=== PATIENT | female | born 1995 | race African-American/Black ===

== ENCOUNTER 2023-12-06 17:31 | Emergency (ER) | payer OTHER ==
[~2023-12-06] VITALS: Ht 172.7 cm; Wt 104.5 kg
[2023-12-06] MEDS ORDERED: ALBUTEROL (17:37)
[2023-12-06 17:38] VITALS: O2SAT 98
[2023-12-06] MEDS: ACETAMINOPHEN 325MG TABLET PO ONE (19:49)
[2023-12-06] MEDS: METOCLOPRAMIDE HCL 10MG TABLET PO ONE (19:49)
[2023-12-06] MEDS ORDERED: ACET-2708 MT (19:57)
[2023-12-06 20:10] VITALS: BP 110/68; PULSE 71; RESP 17; TEMP 36.61404; O2SAT 100
== END 2023-12-06 23:57 | disposition home or self-care (01) ==
LOC: ER 17:44
DX: S00.03XA Contusion of scalp, initial encounter (principal); J45.909 Unspecified asthma, uncomplicated; G89.11 Acute pain due to trauma; Z88.0 Allergy status to penicillin; V49.49XA Driver injured in collision with other motor vehicles in traffic accident, initial encounter; Y93.89 Activity, other specified; Y92.89 Other specified places as the place of occurrence of the external cause; Y99.8 Other external cause status
CPT/HCPCS: 99284; 70450; 81025; 73130; 73560; J8597